=== PATIENT | female | born 1950 | race African-American/Black ===

== ENCOUNTER 2024-06-22 12:12 | Emergency (ER) | payer OTHER ==
--- OUTSIDE RECORDS SUMMARY | 2024-06-22 12:17 | XMS REPORT | Clinical Summary ---
Author Name Unknown Organization [facility] Address [address] [place] [address] Care Team Providers Care Tire Shop Mechanic Name Role Phone Christopher Hernandez MD Unavailable Unava ilable Aakash Ortega MD Unavailable Russ Joyner MD Unavailable [phone] Aakash Osborne MD Unavailable Allergies Active Allergy Reactions Criticality Noted Date Comments Tramadol Anaphylaxis,GI Intolerance,Itching,Naus ea And Vomiting,Other (See Comments) High 05/08/2008 Sick to her stomach;Dizziness "upset stomach" Other Reaction(s): REACTION: diarrhea, abdominal cramping, bloating; n/v upset stomach Outside Source Comment: n%2Fv upset stomach Medications * This document contains information received from the source organization and may not represent a complete record from that organization. apixaban (ELIQUIS) 5 mg tablet Take 1 tablet (5 mg) by mouth every 12 (twelve) hours. 01/19/20 23 Active hydroxyurea (HYDREA) 500 mg capsule Take 1 capsule (500 mg) by mouth daily. 11/29/19 21 Active multivitamin (THERAGRAN) tablet Take 1 tablet by mouth daily. Active lisinopril (PRINIVIL,ZESTR IL) 5 mg tablet TAKE ONE (1) TABLET(S) BY MOUTH ONCE A DAY. 04/15/19 24 Active HYDROcodone-divine taminophen (NORCO) 5 mg-325 mg per tablet TAKE ONE (1) TABLET(S) BY MOUTH TWICE A DAY FOR 15 DAYS. 05/03/19 24 Active nicotine (NICODERM CQ) 21 mg/24 hr transdermal patchIndication s:Tobacco dependence syndrome Apply 1 to 2 patches to skin and change patches daily as directed for tobacco cessation (alternate sites). 56 patch 5 9:26 AM CDT 06/01/19 25 Active atorvastatin (LIPITOR) 40 mg tablet Take 1 tablet (40 mg) by mouth at bedtime. 10/25/19 025 Discontinued cholecalciferol , vitamin D3, 25 mcg (1,000 unit) capsule Take 1 capsule (1,000 Units) by mouth daily. 09/12/19 025 Discontinued doxazosin (CARDURA) 4 mg tablet Take 1 tablet (4 mg) by mouth twice daily. 08/21/19 025 Discontinued furosemide (LASIX) 20 mg tablet Take 2 tablets (40 mg) by mouth as needed. 07/29/19 025 Discontinued nebivolol (BYSTOLIC) 5 MG tablet Take 1 tablet (5 mg) by mouth daily. 06/24/19 025 Discontinued omeprazole (PriLOSEC) 40 MG capsule Take 1 capsule (40 mg) by mouth every morning before breakfast. 02/22/20 025 Discontinued fluticasone-ume clidin-vilanter (Trelegy Ellipta) 200-62.5-25 mcg dsdvIndications :Shortness of breath Inhale 1 puff by mouth daily. 60 each 3 02/10/20 025 Discontinued docusate sodium 100 mg tablet 025 Discontinued potassium citrate (UROCIT-K) 15 mEq SR tablet 025 Discontinued pantoprazole (PROTONIX) 40 mg EC tablet 02/26/20 025 Discontinued potassium chloride (K-DUR,KLOR-CON M) 10 mEq tablet TAKE ONE (1) TABLET(S) BY MOUTH DAILY. 03/12/20 23 025 Discontinued spironolactone (ALDACTONE) 25 mg tablet TAKE ONE (1) TABLET(S) BY MOUTH ONCE A DAY. 03/12/20 23 025 Discontinued divalproex (DEPAKOTE) 500 mg 24 hr tablet 04/22/19 24 025 Discontinued nicotine (NICODERM CQ) 21 mg/24 hr transdermal patchIndication s:Tobacco dependence syndrome Apply 1 patch to skin and change patch daily as directed for tobacco cessation (alternate sites). 28 patch 4 10:40 AM NEEDLE LOOM OPERATOR 05/03/19 024 Discontinued(Re order) varenicline (Chantix) 1 mg tabletIndicatio ns:Tobacco dependence syndrome Take 1/2 tab qAM for 7 days then Increase to one day on day #8 28 tablet 05/10/19 24 025 Discontinued gabapentin (NEURONTIN) 300 mg capsule TAKE ONE (1) CAPSULE(S) BY MOUTH TWICE A DAY. 05/17/19 24 025 Discontinued sertraline (ZOLOFT) 100 mg tabletIndicatio ns:Anxiety, not otherwise specified Take one tab qAM 30 tablet 2 06/10/19 24 025 Discontinued nicotine (NICODERM CQ) 21 mg/24 hr transdermal patchIndication s:Tobacco dependence syndrome Apply 1 patch to skin and change patch daily as directed for tobacco cessation (alternate sites). 28 patch 06/23/19 24 024 Discontinued(Re order) nicotine (NICODERM CQ) 21 mg/24 hr transdermal patchIndication s:Tobacco dependence syndrome Apply 1 patch to skin and change patch daily as directed for tobacco cessation (alternate sites). 28 patch 06/24/19 24 024 Discontinued nicotine (NICODERM CQ) 21 mg/24 hr transdermal patchIndication s:Tobacco dependence syndrome Apply 1 patch to skin and change patch daily as directed for tobacco cessation (alternate sites). 28 patch 4 2:37 PM CDT 06/24/19 24 025 Discontinued nicotine (NICODERM CQ) 21 mg/24 hr transdermal patchIndication s:Tobacco dependence syndrome Apply 1 patch to skin and change patch daily as directed for tobacco cessation (alternate sites). 28 patch 5 9:49 AM NEEDLE LOOM OPERATOR 05/10/19 025 Discontinued(Re order) Active Problems Problem Noted Date Diagnosed Date Anxiety 02/26/2023 Tobacco dependence syndrome 02/10/2023 Chronic obstructive pulmonary disease 01/27/2023 Coronary arteriosclerosis 01/27/2023 Deep vein thrombosis of left lower extremity Chronic kidney disease, stage 2 (mild) 3 Other chronic pain 01/27/2023 Hyperlipidemia 01/27/2023 Congestive heart failure 01/27/2023 Squamous cell carcinoma, NOS of lower lobe, lung <Left> 01/27/2023 Assessment & Plan (01/29/2023 2:07 PM NEEDLE LOOM OPERATOR): Mrs. 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 The patient is not a surgical candidate due to significant comorbidities including CKD4, CHF, CAD, PAD, and recent DVT and PE. We explained she would have an elevated risk for complications if surgery were to be considered. She will be pending in our clinic and has a consult with [facility] next week to discuss SBRT. Pulmonary embolism 01/27/2023 Peripheral vascular disease 07/19/2019 Spinal stenosis of cervical region 05/04/2019 Hypertensive disorder 05/09/2008 Overview (03/24/2023): Replaced inactive or deprecated diagnosis from regulatory IMO import. Resolved Problems Problem Noted Date Diagnosed Date Resolved Date Metastatic malignant neoplasm to brain 09/14/2023 09/14/2023 Encounters * This document contains information received from the source organization and may not represent a complete record from that organization. Date Type Department Care Team Description 04/18/2024 1:29 PM NEEDLE LOOM OPERATOR - 04/18/2024 11:59 PM NEEDLE LOOM OPERATOR Hospital [facility] [address] [facility] Main Bldg, [address] [place] [address] Russ Joyner MD Squamous cell carcinoma, NOS of lower lobe, lung <Left> (Primary Dx) Discharge Disposition: Home 04/18/2024 8:00 AM NEEDLE LOOM OPERATOR Ancillary Procedure PET Imaging [address] [facility], 6th [place] [address] 04/18/2024 Travel 12/28/2023 9:45 AM CDT - 12/28/2023 11:59 PM CDT Hospital Encounter [facility] [address] [place] [address] Main Bldg, [address] [place] [address] Russ Joyner MD Squamous cell carcinoma, NOS of lower lobe, lung <Left> (Primary Dx); Non-small cell lung cancer <Unspecified side> Discharge Disposition: Home 12/28/2023 Travel 12/27/2023 2:40 PM CDT - 12/27/2023 11:59 PM CDT Hospital Encounter [facility] [address] [place] [address], 3rd [place] [address] Marjorie Lawson APRN Non-small cell lung cancer <Unspecified side> Discharge Disposition: Home 09/21/2023 2:45 PM CDT - 09/21/2023 11:59 PM CDT Hospital Encounter [facility] [address] [place] [address] Main dg, [address] [facility] [place] [address] Russ Joyner MD Squamous cell carcinoma, NOS of lower lobe, lung <Left> (Primary Dx); Malignant neoplasm of bronchus of lower lobe of left lung Discharge Disposition: Home 09/21/2023 Orders Only [facility] [address] [place] [address] Main Bldg, [address] [place] [address] Marjorie Lawson APRN Non-small cell lung cancer <Unspecified side> (Primary Dx) 09/14/2023 12:30 PM CDT Ancillary Procedure PET Imaging [address] [facility], 6th [place] [address] Marjorie Lawson APRN after 06/23/2023 Immunizations Name Administration Dates Next Due Pneumococcal Conjugate 13-Valent 04/22/2017 Surgical History Surgery Date Site/Laterality Comments HERNIA REPAIR BREAST LUMPECTOMY HYSTERECTOMY LIVER BIOPSY CHOLECYSTECTOMY [facility] EBUS GUIDED SAMPL 3/> NODE STATION/STRUX 02/11/2023 N/A Procedure: BRONCHOSCOPY WITH EBUS 3 OR MORE NODES; Surgeon: Aakash Osborne MD; Location: MAIN PULM PROC; Service: PULMONARY Medical History Medical History Date Comments Heart failure Hypertension Peripheral vascular disease Hyperlipidemia Thrombosis Unspecified lump in unspecified breast Lung nodule Chronic bronchitis Gastric reflux Anemia Arthritis Depressive disorder Anxiety Malignant tumor of lung Family History Medical History Relation Name Comments Lung cancer Paternal Aunt Multiple Myeloma Sister Relation Name Status Comments Paternal Aunt Sister Social History Tobacco Use Types Packs/Day Years Used Date Smoking Tobacco: Every Day Cigarettes 1 57.3 Started: 03/15/1967 Smokeless Tobacco: Never Tobacco Cessation:Ready to Q uit: Yes; Counseling Given: Yes Comments:Currently smoking 11-12 cpd Alcohol Use Standard Drinks/Week Comments Yes 0 (1 standard drink = 0.6 oz pur e alcohol) 1 glass of wine 4-5x per year Comments Unknown Sex and Gender Information Value Date Recorded Sex Assigned at Female 01/21/2023 10:48 AM NEEDLE LOOM OPERATOR Legal Sex Female 10:58 AM NEEDLE LOOM OPERATOR Gender Identity Female 01/21/2023 10:48 AM NEEDLE LOOM OPERATOR Sexual Orientation Straight 01/21/2023 10 :48 AM NEEDLE LOOM OPERATOR Obstetrics History Last Filed Vital Signs Vital Sign Reading Time Taken Comments Blood Pressure 150/72 04/18/2024 1:37 PM NEEDLE LOOM OPERATOR Pulse 68 04/18/2024 1:37 PM NEEDLE LOOM OPERATOR Temperature 36.9 °C (98.4 °F) 04/18/2024 1:37 PM CS T Respiratory Rate 20 04/18/2024 1:37 PM NEEDLE LOOM OPERATOR Oxygen Saturation 98% 04/18/2024 1:37 PM NEEDLE LOOM OPERATOR Inhaled Oxygen Concentration - - Weight 72 kg (158 lb 11.7 oz) 04/18/2024 1:37 PM NEEDLE LOOM OPERATOR Height 167 cm (5' 5.75") 04/18/2024 8:01 AM NEEDLE LOOM OPERATOR Body Mass Index 25.82 04/18/2024 8:01 AM NEEDLE LOOM OPERATOR Plan of Treatment Upcoming Encounters Date Type Department Care Team (Late st Contact Info) Description 10/23/2024 3:[address] [facility] [address] [facility] Main Bldg, 3rd [place] [address] Megan Liu, DRAFTER TOOL DESIGN [address] [place] [address] [email or web address] 10/24/2024 9:00 AM CDT Appointment [facility] [address] [facility], [address] [place] [address] Russ Joyner MD [address] [place] [address] [email or web address] Maintenance Due Date Last Done Comments COVID-19 Vaccine (#1) 11/29/1955 Pneumococcal Vaccine: 50+ Years (2 of 2 - PPSV23) 07/201704/22/2017 Influenza Vaccine (#1) 2023 Procedures Procedure Name Priority Date/Time Associated Diagnosis Comments PETCT F18 FDG (FLUORODEOXYGLUCOSE) WITHOUT CONTRAST Routine 04/18/2024 9:47 AM NEEDLE LOOM OPERATOR Squamous cell carcinoma, NOS of lower lobe, lung <Left> CT CHEST WO CONTRAST Routine 12/27/2023 4:18 PM CDT Non-small cell lung cancer <Unspecified side> POC CREATININE Routine 12/27/2023 3:25 PM CDT PETCT F18 FDG (FLUORODEOXYGLUCOSE) WITHOUT CONTRAST Routine 09/14/2023 3:08 PM CDT Malignant neoplasm of bronchus of lower lobe of left lung after 06/23/2023 Results * PETCT F18 FDG (Fluorodeoxyglucose) without contrast (04/18/2024 9:47 AM NEEDLE LOOM OPERATOR) Only the most recent of2 resultswithin the time period is included. Anatomical Region Laterality Modality Whole Body Positron Emissio n Tomography (PET) 04/18/2024 10:2 8 AM NEEDLE LOOM OPERATOR Impressions 04/18/2024 1:13 PM NEEDLE LOOM OPERATOR Residua of a treated primary malignancy in the left lower lobe is unchanged in size and continues to show complete metabolic response to therapy. An enlarged left infrahilar lymph node and a nonenlarged right paratracheal lymph nodes are unchanged in size and have low-grade FDG uptake that has not changed significantly in the interval and is most likely due to therapy-related inflammation. Small lung nodules of uncertain etiology are unchanged and most likely benign. There are no distant-extrathoracic systemic metastases. ACTIONABLE ITEMS/RECOMMENDATIONS*: None. *An Actionable Finding is a finding that may be unrelated to the original reason for imaging but potentially actionable, meaning further investigation may be necessary. The Actionable Findings Vigilance Unit (AFVU) assists medical providers with responding to additional radiologic findings that are unexpected and potentially actionable. Narrative 04/18/2024 1:13 PM NEEDLE LOOM OPERATOR FULL RESULT: Examination: 18F-FDG-PET/CT without contrast, 04/18/2024 9:47 AM Clinical History: Malignant neoplasm of bronchus of lower lobe of left lung [C34.32 (ICD-10-CM)]. Indication: To determine response to therapy and subsequent treatment strategy. Restaging. Comparison: Chest CT 12/27/2023. Technique: Following intravenous administration of 9.2 mCi F-18 fluorodeoxyglucose (FDG), a CT attenuation corrected PET scan was obtained from the vertex to the thighs. Findings: Chest: 1. Small focal irregular nodular opacity in left lower lobe (image 214, series 6) consistent with residua of a treated primary lung malignancy is unchanged in size and is not FDG avid. There is an adjacent atelectatic/consolidative opacity with low-grade FDG uptake consistent with sequelae of radiation therapy. 2. Small (less than 5 mm) scattered noncalcified nodules in both lungs are unchanged. There are no new lung nodules. There is a diffusely calcified benign right lung nodule. 3. There is a 1.2 cm left infrahilar lymph node (image 183) that is unchanged in size and has low-grade FDG uptake (SUV max 3.2, previously 3.4). There is low-grade FDG uptake within a nonenlarged right lower paratracheal lymph node (SUV max 2.9, previously 2.7). There are no enlarged or FDG avid extrathoracic lymph nodes. 4. There is coronary artery calcification consistent with sequelae of atherosclerosis. 5. There is linear increased FDG uptake within the esophagus extending from the thoracic inlet to the gastroesophageal junction consistent with esophagitis. Abdomen and Pelvis: 6. FDG uptake in the liver and spleen is physiologic. There is a 2.5 x 1.2 cm soft tissue nodule adjacent to the spleen that is not FDG avid, is unchanged since 04/21/2022 and is most consistent with a splenule. 7. The adrenals are normal. Musculoskeletal: 8. There are no FDG avid osseous metastases. Head and Neck: 9. There are no FDG avid brain metastases. However, PET/CT imaging is not the optimal imaging modality for the detection of small brain metastases. Procedure Note Marquise Trevino MD - 04/18/2024 FULL RESULT: Examination: 18F-FDG-PET/CT without contrast, 04/18/2024 9:47 AM Clinical History: Malignant neoplasm of bronchus of lower lobe of leftlung [C34.32 (ICD-10-CM)]. Indication: To determine response to therapy and subsequent treatmentstrategy. Restaging. Comparison: Chest CT 12/27/2023. Technique: Following intravenous administration of 9.2 mCi F- 18fluorodeoxyglucose (FDG), a CT attenuation corrected PET scan was obtainedfrom the vertex to the thighs. Findings: Chest: 1. Small focal irregular nodular opacity in left lower lobe (image 214,series 6) consistent with residua of a treated primary lung malignancy isunchanged in size and is not FDG avid. There is an adjacentatelectatic/consolidative opacity with low- grade FDG uptake consistentwith sequelae of radiation therapy. 2. Small (less than 5 mm) scattered noncalcified nodules in both lungs areunchanged. There are no new lung nodules. There is a diffusely calcifiedbenign right lung nodule. 3. There is a 1.2 cm left infrahilar lymph node (image 183) that isunchanged in size and has low-grade FDG uptake (SUV max 3.2, previously3.4). There is low-grade FDG uptake within a nonenlarged right lowerparatracheal lymph node (SUV max 2.9, previously 2.7). There are noenlarged or FDG avid extrathoracic lymph nodes. 4. There is coronary artery calcification consistent with sequelae ofatherosclerosis. 5. There is linear increased FDG uptake within the esophagus extendingfrom the thoracic inlet to the gastroesophageal junction consistent withesophagitis. Abdomen and Pelvis: 6. FDG uptake in the liver and spleen is physiologic. There is a 2.5 x 1.2cm soft tissue nodule adjacent to the spleen that is not FDG avid, isunchanged since 04/21/2022 and is most consistent with a splenule. 7. The adrenals are normal. Musculoskeletal: 8. There are no FDG avid osseous metastases. Head and Neck: 9. There are no FDG avid brain metastases. However, PET/CT imaging is notthe optimal imaging modality for the detection of small brainmetastases. IMPRESSION: Residua of a treated primary malignancy in the left lower lobe isunchanged in size and continues to show complete metabolic response totherapy. An enlarged left infrahilar lymph node and a nonenlarged rightparatracheal lymph nodes are unchanged in size and have low-grade FDGuptake that has not changed significantly in the interval and is mostlikely due to therapy-related inflammation. Small lung nodules ofuncertain etiology are unchanged and most likely benign. There are nodistant-extrathoracic systemic metastases. ACTIONABLE ITEMS/RECOMMENDATIONS*: None. *An Actionable Finding is a finding that may be unrelated to the originalreason for imaging but potentially actionable, meaning furtherinvestigation may be necessary. The Actionable Findings Vigilance Unit(AFVU) assists medical providers with responding to additional radiologicfindings that are unexpected and potentially actionable. Megan Liu APRN IMG PETCT ORDERABL ES Final Result * CT Chest without Contrast (12/27/2023 4:18 PM CDT) Anatomical Region Laterality Modality Chest Computed Tomogra phy 12/27/2023 4:50 PM CDT Impressions 12/28/2023 8:50 AM CDT 1. Further volume contraction in the left lower lobe radiation fibrosis. No specific evidence of recurrent or metastatic disease in the chest. 2. A 12 mm lymph node in the left inferior hilum is not significantly changed from 01/31/2023, and favored to be benign. 3. Scattered pulmonary nodules are stable from 01/31/2023, and are likely benign. ACTIONABLE ITEMS/RECOMMENDATIONS*: None. *An Actionable Finding is a finding that may be unrelated to the original reason for imaging but potentially actionable, meaning further investigation may be necessary. The Actionable Findings Vigilance Unit (AFVU) assists medical providers with responding to additional radiologic findings that are unexpected and potentially actionable. Narrative 12/28/2023 8:50 AM CDT FULL RESULT: Examination: CT CHEST WO CONTRAST on 12/27/2023 4:18 PM. Clinical History: Non-small cell lung cancer <Unspecified side>. Left lower lobe radiation therapy completed 03/04/2023 Indication: Cancer staging or restaging Comparison: PET/CT 09/14/2023 Technique: CT of the chest is performed without intravenous contrast. Findings: Lungs/Airways/Pleura: Bilateral bronchial wall thickening is present. The central airways are clear. There is progressive volume loss associated with the left lower lobe radiation fibrosis. The treated lesion within the radiation fibrosis is stable measuring approximately 14 x 7 mm (series 7, image 97). There is mild emphysema. Multiple calcified granulomas are present. Other, scattered 2-3 mm pulmonary nodules are stable from 01/31/2023. There are no new or enlarging pulmonary nodules. The pleural spaces are clear. Neck/Mediastinum/Nodes/Heart: A 12 mm lymph node in the left inferior hilum is stable. Other mediastinal lymph nodes measuring up to 7 mm are stable. There are calcified subcarinal and left hilar lymph nodes. The heart size is normal. There is no pericardial effusion. Calcific coronary atherosclerosis is present. The pulmonary artery is mildly dilated measuring 32 mm. Upper abdomen: There are bilateral renal calculi measuring up to 5 mm. There has been prior repair of the anterior abdominal wall. Bones/Soft Tissues: There is no suspicious osseous lesion. ACDF hardware is present. There is a stable compression deformity of the superior endplate of T4. Procedure Note Jamey Harrison MD - 12/28/2023 FULL RESULT: Examination: CT CHEST WO CONTRAST on 12/27/2023 4:18 PM. Clinical History: Non-small cell lung cancer <Unspecified side>. Leftlower lobe radiation therapy completed 03/04/2023 Indication: Cancer staging or restaging Comparison: PET/CT 09/14/2023 Technique: CT of the chest is performed without intravenous contrast. Findings: Lungs/Airways/Pleura: Bilateral bronchial wall thickening is present. Thecentral airways are clear. There is progressive volume loss associatedwith the left lower lobe radiation fibrosis. The treated lesion within theradiation fibrosis is stable measuring approximately 14 x 7 mm (series 7,image 97). There is mild emphysema. Multiple calcified granulomas arepresent. Other, scattered 2-3 mm pulmonary nodules are stable from01/31/2023. There are no new or enlarging pulmonary nodules. The pleuralspaces are clear. Neck/Mediastinum/Nodes/Heart: A 12 mm lymph node in the left inferiorhilum is stable. Other mediastinal lymph nodes measuring up to 7 mm arestable. There are calcified subcarinal and left hilar lymph nodes. Theheart size is normal. There is no pericardial effusion. Calcific coronaryatherosclerosis is present. The pulmonary artery is mildly dilatedmeasuring 32 mm. Upper abdomen: There are bilateral renal calculi measuring up to 5 mm.There has been prior repair of the anterior abdominal wall. Bones/Soft Tissues: There is no suspicious osseous lesion. ACDF hardwareis present. There is a stable compression deformity of the superiorendplate of T4. IMPRESSION: 1. Further volume contraction in the left lower lobe radiation fibrosis.No specific evidence of recurrent or metastatic disease in the chest. 2. A 12 mm lymph node in the left inferior hilum is not significantlychanged from 01/31/2023, and favored to be benign. 3. Scattered pulmonary nodules are stable from 01/31/2023, and are likelybenign. ACTIONABLE ITEMS/RECOMMENDATIONS*: None. *An Actionable Finding is a finding that may be unrelated to the originalreason for imaging but potentially actionable, meaning furtherinvestigation may be necessary. The Actionable Findings Vigilance Unit(AFVU) assists medical providers with responding to additional radiologicfindings that are unexpected and potentially actionable. Marjorie Lawson DRAFTER TOOL DESIGN IMG CT ORDERABLES Final Result * (ABNORMAL) POC Creatinine (12/27/2023 3:25 PM CDT) POC Creatinine 2.3(H) 0.6 - 1.3 mg/dL 12/27/2023 3:27 PM CDT [facility] Comment:Medications, especia lly hydroxyurea or supplements, such as ascorbate, can interfere with test results causing a falsely and significantly higher result than expected. If a problem is suspected with a patient's result, a sample should be sent to the laboratory for confirmatory testing. POC eGFR 22(L) >=60 mL/min/1.7 3 sq. m 12/27/2023 3:27 PM CDT [facility] Comment: The eGFRcr is calculated with the 2020 CKD-EPI creatinine equation using creatinine, patient's age, and sex for adults 18 years of age and older. Other factors, especially muscle mass, may affect accuracy and need to be considered. According to the Kidney Disease: Improving Global Outcomes (KDIGO) CKD Work Group 2012 Clinical Practice Guideline, chronic kidney disease (CKD) is defined as the abnormalities of kidney structure or function, present for more than 3 months, with implications for health. CKD should be classified by cause, GFR category, and albuminuria category. KDIGO guidelines provide the following GFR categories. Stage / Description / GFR mL/min/1.73 m2: G1* / Normal or high / >= 90 G2* / Mildly decreased / 60-89 G3a / Mildly to moderately decreased / 45-59 G3b / Moderately to severely decreased / 30-44 G4 / Severely decreased / 15-29 G5 / Kidney failure / <15 *In the absence of evidence of kidney damage, neither G1 nor G2 fulfill criteria for CKD. Blood 12/27/2023 3:25 PM CDT 12/27/2023 3:27 PM CDT Narrative [facility] - 12/27/2023 3:27 PM CDT Method description: The i-STAT is an analyzer used for in vitro quantification of various analytes in whole blood. The device uses a single disposable cartridge which contains microfabricated sensors, a calibration solution, fluidics system, and a waste chamber. Each test cartridge contains chemically sensitive biosensors on a silicon chip that are configured to perform specific tests. The microfabricated sensors measure analyte concentration by an electrochemical assay. Marjorie Lawson DRAFTER TOOL DESIGN POCT ORDERABLES - DEVICE Final Result [facility] Unless otherwise noted, all lab tests performed by: Division of Pathology and Laboratory Medicine [facility] [place] [address] after 06/23/[address] [place] [address] [employer] [place] [address] [employer] PPO Care Teams [employer] Mechanic Relationship Specialty Start Date End Date Christopher Hernandez MD [address] [place] [id number] PCP - External Referring Pulmonary Medicine 01/20/23 Aakash Ortega MD [address] [place] [id number] [email or web address] Physician Cardiothoracic Surgery 01/29/23 Russ Joyner MD [facility] [place], [place] [id number] [email or web address] Consulting Physician Radiation Oncology 02/01/23 Aakash Osborne MD [address] [place] [address] [id number] [email or web address] Consulting Physician Pulmonary Medicine 02/09/23
--- NOTE | 2024-06-22 14:42 | RAD REPORT ---
EXAMINATION: ONE VIEW CHEST XR CLINICAL INDICATION: Female, 73 years old.,CHEST PAIN TECHNIQUE: Frontal chest projection is submitted. Examination is limited by patient positioning and t echnique. COMPARISON: 04/24/2024 FINDINGS: The lungs are well inflated and clear. No pneumothorax or sizable effusion. The heart is normal in s ize. Mediastinal contours are unremarkable. IMPRESSION: No acute intrathoracic abnormalities.
--- NOTE | 2024-06-22 15:04 | RAD REPORT ---
EXAM: CT Head Brain Wo Cont HISTORY: HEADACHE COMPARISON: None available TECHNIQUE: Multiple contiguous axial images were obtained for a CT of the brain without contrast. Sag ittal and coronal reformats were performed. One or more of the following dose reduction techniques were used: Automated exposure control, adjus tment of the mA and kV according to patient size, and iterative reconstruction. Unless otherwise specified, incidental findings do not require dedicated imaging follow-up. FINDINGS: No evidence of hydrocephalus, intracranial hemorrhage, or extra-axial fluid collection. Mild brain atrophy with mild periventricular and deep white matter chronic microvascular ischemic ch anges present. The calvarium is intact. The visualized paranasal sinuses and mastoid air cells are essentially clear . IMPRESSION: No evidence of acute intracranial abnormality.
[2024-06-22 15:48] LABS: Absolute Basophils 0.1 K/uL (0-0.5); Absolute Eosinophils 0.1 K/uL (0-0.5); Absolute Lymphocytes (CBC) 2.1 K/uL (0.7-4.9); Absolute Monocytes 0.3 K/uL (0.1-1.3); Absolute Neutrophil 4.1 K/uL (1.8-8.0); Basophils % 1.1 % (0-1.3); Eosinophils % 1.4 % (0-4.4); Hematocrit 33.6 % (36.0-45.0); Hemoglobin 11.7 g/dL (12.0-15.0); Lymphocytes % 31.6 % (15.3-44.8); MCH 37.6 pg (27.0-35.0); MCHC 34.8 g/dL (32.0-36.0); MCV 108.1 fL (80-100); MPV 9.1 fL (7.6-11.3); Monocytes % 4.5 % (3.3-12.3); Neutrophils % 61.4 % (41.7-73.7); Platelets 355 thou/uL (152-406); RBC Red Blood Cell Count 3.11 M/uL (3.86-4.86); Red Cell Distribution Width 13.3 % (12.1-15.2)
[2024-06-22 16:02] LABS: Anion Gap 9.3 mEq/L (5.0-15.0); Magnesium 2.2 mg/dL (1.6-2.4); Potassium 4.3 mEq/L (3.5-5.1); Troponin High Sensitivity 15.9 pg/mL (<58.9)
[2024-06-22] MEDS ORDERED: KETOROLAC 30 MG/ML INJ ONE (16:03)
[2024-06-22] MEDS ORDERED: DIPHENHYDRAMINE 50 MG/ML VIAL ONE (16:28)
[2024-06-22] MEDS ORDERED: NA CHLORIDE 0.9% 250 ML ONE (16:28)
[2024-06-22] MEDS ORDERED: METOCLOPRAMIDE 10 MG/2mL INJ ONE (16:28)
--- NOTE | 2024-06-22 16:39 | ER ---
Nurse's Notes [facility] Name: Meg Gonzalez Age: 73 yrs Sex: Female : 1950 Arrival Date: 06/22/2024 Time: 12:12 Bed 15 Private MD: Diagnosis: Essential (primary) hypertension;Headache;Anemia, unspecified;Shortness of breath Presentation: 06/22 13:09 Chief complaint: Patient states: her BP was running high and she is having squeezing iw chest pains, took 40 mg of her lisinopril this morning. Coronavirus screen: At this time, the client does not indicate any symptoms associated with coronavirus-19. Ebola Screen: No symptoms or risks identified at this time. Initial Sepsis Screen: Does the patient meet any 2 criteria? No. Patient's initial sepsis screen is negative. Does the patient have a suspected source of infection? No. Patient's initial sepsis screen is negative. Risk Assessment: Do you want to hurt yourself or someone else? Patient reports no desire to harm self or others. 13:09 Method Of Arrival: Wheelchair iw 13:09 Acuity: GASPER 3 iw 13:09 Onset of symptoms was June 21, 2024. iw Historical: - Allergies: 13:10 Ultram; iw - Home Meds: 13:10 Eliquis 5 mg oral tablet 2 times per day [Active]; iw - PMHx: 13:10 HIGH PLATELETS; Hypertensive disorder; Lung Cancer; iw - Infectious Disease History:: Denies. - Social history:: Smoking status: Patient reports the use of cigarette tobacco products, smokes one-half pack cigarettes per day. Screenin:52 [facility] ED Fall Risk Assessment (Adult) History of falling in the last 3 months, db including since admission No falls in past 3 months (0 pts) Confusion or Disorientation No (0 pts) Intoxicated or Sedated No (0 pts) Impaired Gait No (0 pts) Mobility Assist Device Used No (0 pt) Altered Elimination No (0 pt) Score/Fall Risk Level 0 - 2 = Low Risk Oriented to surroundings, Maintained a safe environment. Abuse screen: Denies threats or abuse. Denies injuries from another. Nutritional screening: No deficits noted. Tuberculosis screening: No symptoms or risk factors identified. Assessment: 13:45 Reassessment: No changes from previously documented assessment. Patient and/or family ll1 updated on plan of care and expected duration. Pain level reassessed. 15:22 Reassessment: Patient appears in no apparent distress at this time. Patient and/or db family updated on plan of care and expected duration. Pain level reassessed. Patient is alert, oriented x 3, equal unlabored respirations, skin warm/dry/pink. General: Appears in no apparent distress. comfortable. 16:09 Reassessment: PATIENT REFUSED TORADOL. STATES HAS STAGE 3 KIDNEY DISEASE. db 17:29 Reassessment: Patient appears in no apparent distress at this time. Patient and/or db family updated on plan of care and expected duration. Pain level reassessed. Patient is alert, oriented x 3, equal unlabored respirations, skin warm/dry/pink. Reassessment: Patient denies pain at this time. Patient states feeling better. Patient states symptoms have improved. General: Appears in no apparent distress. comfortable, Behavior is calm, cooperative. Pain: Denies pain. Pain: Complains of pain in head. Neuro: Level of Consciousness is awake, alert, obeys commands, Oriented to person, place, time, situation. Vital Signs: 13:09 BP 179 / 101; Pulse 62; Resp 18; Temp 97.8; Pulse Ox 100% on R/A; Weight 73.03 kg; iw Height 5 ft. 8 in. ; Pain 8/10; 14:18 BP 154 / 76; Pulse 65; Resp 16; Pulse Ox 100% ; db 15:05 BP 166 / 80; Pulse 64; Resp 16; Pulse Ox 100% ; db 16:00 BP 161 / 77; Pulse 65; Resp 16; Pulse Ox 100% ; db 17:00 BP 137 / 67; Pulse 64; Resp 16; Pulse Ox 100% ; db 13:09 Body Mass Index 24.48 (73.03 kg, 172.72 cm) iw 13:09 Pain Scale: Adult iw ED Course: 12:15 Patient arrived in ED. al6 12:15 Gorge Dimas DO is Attending Physician. ms3 12:57 CT Head Brain wo Cont In Process Unspecified. EDMS 13:00 XRAY Chest (1 view) In Process Unspecified. EDMS 13:09 Triage completed. iw 13:10 Arm band placed on. iw 13:45 Patient placed in an exam room, on a stretcher. ll1 14:18 Loulou Dickens, RN is Primary Nurse. db 14:48 Initial lab(s) drawn, by me, sent to lab. Missed attempt(s): 22 gauge in left wrist. db Bleeding controlled, band aid applied, catheter tip intact. 15:03 Missed attempt(s): 24 gauge in right upper arm. Bleeding controlled, band aid applied, ll1 catheter tip intact. 15:06 Lab(s) recollected, by me, held in ED. Inserted saline lock: 24 gauge in right hand, ll1 using aseptic technique. Blood collected. Flushed with 10 mL NS. 16:38 Reuben Toure MD is Referral Physician. ms3 17:30 Patient has correct armband on for positive identification. Bed in low position. Call db light in reach. Side rails up X 1. Provided Education on: DISCHARGE AND FOLLOWUP. Pulse ox on. NIBP on. Warm blanket given. Pillow given. 17:30 No provider procedures requiring assistance completed. IV discontinued, intact, db bleeding controlled, No redness/swelling at site. Administered Medications: 16:09 Not Given (Patient Refused): [id number] mg 10 mg IVP once db 16:25 Drug: NS 0.9% IV 250 ml IV at 250 ml once; to be given as a bolus over 60 minutes db Route: IV; Rate: 250 ml; Site: right hand; 17:33 Follow up: Response: No adverse reaction; IV Status: Completed infusion; IV Intake: db 250ml 16:30 Drug: metoCLOPramide IVP 10 mg IVP once; over 1 to 2 minutes Route: IVP; Site: right db wrist; 17:33 Follow up: Response: No adverse reaction db 16:30 Drug: diphenhydrAMINE IVP 12.5 mg IVP once Route: IVP; Site: right antecubital; db 17:33 Follow up: Response: No adverse reaction db Medication: 15:22 VIS not applicable for this client. db Intake: 17:33 IV: 250ml; Total: 250ml. db Outcome: 16:39 Discharge ordered by . ms3 17:30 Discharged to home via wheelchair, with family, db 17:30 Condition: stable 17:30 Discharge instructions given to patient, Instructed on discharge instructions, follow up and referral plans. 17:33 Patient left the ED. db Signatures: Dispatcher [employer] EDMayda Stewart RN RN iw Elizabeth Herrera RN RN ll1 Gorge Dimas, DO ms3 Loulou Dickens RN RN db Delia Sousa6 Corrections: (The following items were deleted from the chart) 13:10 13:09 BP 179 / 101; Pulse 62bpm; Resp 18bpm; Pulse Ox 100% RA; Temp 97.8F; Pain 8, iw Adult; iw 17:30 15:22 Reassessment: Patient appears in no apparent distress at this time. Patient db and/or family updated on plan of care and expected duration. Pain level reassessed. Patient is alert, oriented x 3, equal unlabored respirations, skin warm/dry/pink. db
--- NOTE | 2024-06-22 16:39 | EDPHYS ---
Physician Documentation [facility] Name: Meg Gonzalez Age: 73 yrs Sex: Female : 1950 Arrival Date: 06/22/2024 Time: 12:12 Bed 15 Private MD: ED Physician Gorge Dimas HPI: 06/22 12:42 This 73 yrs old Black Female presents to ER via Unassigned with complaints of High ms3 Blood Pressure. 12:42 73-year-old female with past medical history of hypertension, congestive heart failure ms3 presents to the emergency department for elevated blood pressure x 2 days. Patient states today her blood pressure was 217/103. Patient states she is experiencing headache, chest pain, fatigue. Patient states her discomfort is an 8/10. She denies any alleviating or inciting factors. Historical: - Allergies: 13:10 Ultram; iw - Home Meds: 13:10 Eliquis 5 mg oral tablet 2 times per day [Active]; iw - PMHx: 13:10 HIGH PLATELETS; Hypertensive disorder; Lung Cancer; iw - Infectious Disease History:: Denies. - Social history:: Smoking status: Patient reports the use of cigarette tobacco products, smokes one-half pack cigarettes per day. ROS: 12:42 Constitutional: Negative for fever, and chills. Respiratory: Negative for shortness of ms3 breath, cough, wheezing, and pleuritic chest pain, Abdomen/GI: Negative for abdominal pain, nausea, vomiting, diarrhea, and constipation, 12:42 MS/Extremity: Negative for injury and deformity, Skin: Negative for injury, rash, and discoloration, 12:42 Cardiovascular: Positive for chest pain, Exam: 12:42 Constitutional: This is a well developed, well nourished patient who is awake, alert, ms3 and in no acute distress. Cardiovascular: Regular rate and rhythm with a normal S1 and S2. No gallops, murmurs, or rubs. Normal PMI, no JVD. No pulse deficits. Respiratory: Lungs have equal breath sounds bilaterally, clear to auscultation and percussion. No rales, rhonchi or wheezes noted. No increased work of breathing, no retractions or nasal flaring. Abdomen/GI: Soft, non-tender, with normal bowel sounds. No distension or tympany. No guarding or rebound. No evidence of tenderness throughout. Skin: Warm, dry with normal turgor. Normal color with no rashes, no lesions, and no evidence of cellulitis. MS/ Extremity: Pulses equal, no cyanosis. Neurovascular intact. Full, normal range of motion. Neuro: Awake and alert, GCS 15, oriented to person, place, time, and situation. Cranial nerves II-XII grossly intact. Motor strength 5/5 in all extremities. Sensory grossly intact. Cerebellar exam normal. Normal gait. Psych: Awake, alert, with orientation to person, place and time. Behavior, mood, and affect are within normal limits. 21:47 ECG was reviewed by the Attending Physician. ms3 Vital Signs: 13:09 BP 179 / 101; Pulse 62; Resp 18; Temp 97.8; Pulse Ox 100% on R/A; Weight 73.03 kg; iw Height 5 ft. 8 in. ; Pain 8/10; 14:18 BP 154 / 76; Pulse 65; Resp 16; Pulse Ox 100% ; db 15:05 BP 166 / 80; Pulse 64; Resp 16; Pulse Ox 100% ; db 16:00 BP 161 / 77; Pulse 65; Resp 16; Pulse Ox 100% ; db 17:00 BP 137 / 67; Pulse 64; Resp 16; Pulse Ox 100% ; db 13:09 Body Mass Index 24.48 (73.03 kg, 172.72 cm) iw 13:09 Pain Scale: Adult iw MDM: 12:42 Differential diagnosis: hypertensive crisis, Malignant HTN, intracerebral hemorrhage. ms3 12:49 Medical Screening Exam initiated ms3 21:47 Data reviewed: vital signs, nurses notes, lab test result(s), EKG, radiologic studies, ms3 and as a result, I will discharge patient. I considered the following discharge prescriptions or medication management in the emergency department Medications were administered in the Emergency Department. See MAR. Independent interpretation of the following test(s) in the Emergency Department EKG: See my EKG interpretation above. Counseling: I had a detailed discussion with the patient and/or guardian regarding the historical points, exam findings, and any diagnostic results supporting the discharge/admit diagnosis, lab results, radiology results, the need for outpatient follow up, to return to the emergency department if symptoms worsen or persist or if there are any questions or concerns that arise at home. Special discussion: I discussed with the patient/guardian in detail that at this point there is no indication for admission to the hospital. It is understood, however, that if the symptoms persist or worsen the patient needs to return immediately for re-evaluation. ED course: Discussed labs, EKG, CT head, chest x-ray with patient. Patient to follow-up with primary care physician in 2 to 3 days. Patient understands agrees with plan. All questions were answered. Return precautions discussed include worsening symptoms, or any other concerns. 06/22 12:42 Order name: Basic Metabolic Panel; Complete Time: 16:13 ms3 06/22 12:42 Order name: CBC with Diff ms3 06/22 12:42 Order name: Magnesium; Complete Time: 16:13 ms3 06/22 12:42 Order name: Troponin HS; Complete Time: 16:13 ms3 06/22 12:42 Order name: XRAY Chest (1 view); Complete Time: 15:29 ms3 06/22 12:42 Order name: CT Head Brain wo Cont; Complete Time: 15:29 ms3 06/22 12:42 Order name: Cardiac monitoring; Complete Time: 15:22 ms3 06/22 12:42 Order name: EKG - Nurse/Tech; Complete Time: 14:51 ms3 06/22 12:42 Order name: IV Saline Lock; Complete Time: 14:51 ms3 06/22 12:42 Order name: Labs collected and sent; Complete Time: 14:51 ms3 06/22 12:42 Order name: O2 Per Protocol; Complete Time: 14:51 ms3 06/22 12:42 Order name: O2 Sat Monitoring; Complete Time: 14:51 ms3 06/22 15:07 Order name: Labs - recollect needed: green and purple; Complete Time: 15:22 bc6 EC:47 Rate is 62 beats/min. Rhythm is regular. QRS Rom[place] is Normal. QRS interval is normal. ms3 Clinical impression: NSR w/ Non-specific ST/T Changes. Interpreted by me. Reviewed by me. Administered Medications: 16:09 Not Given (Patient Refused): [id number] mg 10 mg IVP once db 16:25 Drug: NS 0.9% IV 250 ml IV at 250 ml once; to be given as a bolus over 60 minutes db Route: IV; Rate: 250 ml; Site: right hand; 17:33 Follow up: Response: No adverse reaction; IV Status: Completed infusion; IV Intake: db 250ml 16:30 Drug: metoCLOPramide IVP 10 mg IVP once; over 1 to 2 minutes Route: IVP; Site: right db wrist; 17:33 Follow up: Response: No adverse reaction db 16:30 Drug: diphenhydrAMINE IVP 12.5 mg IVP once Route: IVP; Site: right antecubital; db 17:33 Follow up: Response: No adverse reaction db Disposition Summary: 06/22/24 16:39 Discharge Ordered Notes: Location: Home ms3 Condition: Stable ms3 Diagnosis - Essential (primary) hypertension ms3 - Headache ms3 - Anemia, unspecified ms3 - Shortness of breath ms3 Followup: ms3 - With: Reuben Toure MD - When: 2 - 3 days - Reason: Recheck today's complaints Discharge Instructions: - Discharge Summary Sheet ms3 - Anemia ms3 - General Headache Without Cause ms3 - Hypertension, Adult ms3 - Shortness of Breath, Adult ms3 - DASH Eating Plan ms3 Forms: - Medication Reconciliation Form ms3 - Antibiotic Education ms3 - Prescription Opioid Use ms3 - Patient Portal Instructions ms3 - Leadership Thank You Letter ms3 Signatures: Dispatcher [employer] EDMayda Stewart, RN GREGOR iw Gorge Dimas DO DO ms3 Loulou Dickens RN RN db Zakia Duarte bc6 Corrections: (The following items were deleted from the chart) 12:43 12:43 BASIC METABOLIC PANEL+C.LAB.BRZ ordered. EDMS EDMS 12:43 12:43 CBC+H.LAB.BRZ ordered. EDMS EDMS 12:43 12:43 MAGNESIUM+C.LAB.BRZ ordered. EDMS EDMS 12:43 12:43 Troponin High Sensitivity+C.LAB.BRZ ordered. EDMS EDMS 12:43 12:43 Chest Single View+RAD.RAD.BRZ ordered. EDMS EDMS 12:43 12:43 Head Brain Wo Cont+CT.RAD.BRZ ordered. EDMS EDMS
[2024-06-22 17:33] LABS: Anisocytosis 1+; Blood Morphology Comment NOTED (NOT SEEN); Platelet Estimate ADEQ; Poikilocytosis 1+; White Blood Cell Scan OK (OK)
[2024-06-22 17:53] VITALS: TEMP 97.8; O2SAT 100
[2024-06-22 18:12] VITALS: BP 137/67
--- NOTE | 2024-06-23 14:17 | EKG ---
Test Date: 2024-06-22 Test Time: 13:15:54 Mail Rider: COLTON MEASUREMENT RESULTS: Intervals: Rate: 62 ME: 144 QRSD: 88 QT: 414 QTc: 420 [place]: P: -25 ME: 144 QRS: 64 T: -33 INTERPRETIVE STATEMENTS: Normal sinus rhythm T wave abnormality, consider inferior ischemia Abnormal ECG Compared to ECG 03/07/2023 16:10:44 Sinus arrhythmia no longer present T-wave abnormality still present Possible ischemia still present Electronically Signed On 06-23-24 14:13:31 CDT by [place]
== END 2024-06-22 17:33 | disposition home or self-care (01) ==
LOC: ER 12:12
DX: I10 Essential (primary) hypertension (principal); D64.9 Anemia, unspecified; R51.9 Headache, unspecified; R06.02 Shortness of breath; F17.210 Nicotine dependence, cigarettes, uncomplicated; Z79.01 Long term (current) use of anticoagulants; Z85.118 Personal history of other malignant neoplasm of bronchus and lung
CPT/HCPCS: 93005; 85025; 80048; 36415; 83735; 84484; 70450; 71045; 99284; J2765; J1200; J7050

== ENCOUNTER 2024-10-26 18:33 | Emergency (ER) | payer OTHER ==
--- OUTSIDE RECORDS SUMMARY | 2024-10-26 18:37 | XMS REPORT | Clinical Summary ---
Author Name Unknown Organization [facility] Address [address] [place] [address] Care Team Providers Care Development Associate Name Role Phone Christopher Hernandez MD Unavailable Unava ilable Aakash Ortega MD Unavailable Russ Joyner MD Unavailable [phone] Aakash Osborne MD Unavailable Allergies Active Allergy [...] 5 9:26 AM CDT 06/01/19 25 Active cloNIDine HCl (CATAPRES) 0.1 mg tablet Take 1 tablet (0.1 mg) by mouth. Active atorvastatin (LIPITOR) 40 mg tablet Take [...] by mouth daily. 60 each 3 02/10/20 23 025 Discontinued docusate sodium 100 mg tablet 025 Discontinued potassium citrate (UROCIT-K) 15 mEq SR tablet 025 Discontinued pantoprazole (PROTONIX) 40 mg EC tablet 02/26/20 23 025 Discontinued potassium chloride (K-DUR,KLOR-CON M) 10 mEq tablet TAKE ONE (1) TABLET(S) BY MOUTH DAILY. 03/12/20 025 Discontinued spironolactone (ALDACTONE) 25 mg tablet TAKE ONE (1) TABLET(S) BY MOUTH ONCE A DAY. 03/12/20 025 Discontinued divalproex (DEPAKOTE) 500 mg 24 hr tablet 04/22/19 24 025 Discontinued varenicline (Chantix) 1 mg tabletIndicatio ns:Tobacco dependence syndrome Take 1/2 tab qAM for 7 days then Increase to one day on day #8 28 tablet 05/10/19 025 Discontinued gabapentin (NEURONTIN) 300 mg capsule [...] (alternate sites). 28 patch 5 9:49 AM LOCAL SUPERINTENDENT 05/10/19 25 025 Discontinued(Re order) Active Problems Problem Noted [...] 01/27/2023 Assessment & Plan (01/29/2023 2:07 PM LOCAL SUPERINTENDENT): Mrs. Gonzalez is a 72 year-old female [...] or deprecated diagnosis from regulatory IMO import. Encounters * This document contains information received from the source organization and may not represent a complete record from that organization. Date Type Department Care Team Description 10/24/2024 2:32 PM CDT Hospital Encounter Radiation Treatment Center [facility] Main Bldg, [address]st [place] [address] Russ Joyner MD Squamous cell carcinoma, NOS of lower lobe, lung <Left> (Primary Dx) 10/24/2024 Travel 10/23/2024 8:35 AM CDT Ancillary Procedure Radiology Outpatient Center [address] [place] [address] Marjorie Lawson APRN Non-small cell lung cancer <Unspecified side> 10/17/2024 Orders Only Radiation Treatment Center [address] [place] [address] Main Bldg, [address] [place] [address] Marjorie Lawson APRN Non-small cell lung cancer <Unspecified side> (Primary Dx) 04/18/2024 1:29 PM LOCAL SUPERINTENDENT - 04/18/2024 11:59 PM LOCAL SUPERINTENDENT Hospital Encounter [facility] [address] [place] [address] Main Bldg, [address] [place] [address] Russ Joyner MD Squamous cell carcinoma, NOS of lower lobe, lung <Left> (Primary Dx) Discharge Disposition: Home 04/18/2024 8:00 AM LOCAL SUPERINTENDENT Ancillary Procedure PET Imaging [address] [facility], 6th [place] [address] 04/18/2024 Travel 12/28/2023 9:45 AM CDT - 12/28/2023 11:59 PM CDT Hospital Encounter Radiation Treatment Center [address] [facility] Main dg, [address] [place] [address] Russ Joyner MD Squamous cell carcinoma, NOS of lower lobe, lung <Left> (Primary Dx); Non-small cell lung cancer <Unspecified side> Discharge Disposition: Home 12/28/2023 Travel 12/27/2023 2:40 PM CDT - 12/27/2023 11:59 PM CDT Hospital Encounter [facility] [address] [facility], 3rd [place] [address] Marjorie Lawson, [employer] MACHINE OPERATOR Non-small cell lung cancer <Unspecified side> Discharge Disposition: Home after 10/27/2023 Immunizations Immunization Administration Dates Next Due Pneumococcal Conjugate 13-Valent 04/22/2017 Surgical History Surgery Date Site/Laterality Comments HERNIA REPAIR BREAST LUMPECTOMY HYSTERECTOMY LIVER BIOPSY CHOLECYSTECTOMY [place] [facility] EBUS GUIDED SAMPL 3/> NODE STATION/STRUX 02/11/2023 N/A Procedure: BRONCHOSCOPY WITH EBUS 3 OR MORE NODES; Surgeon: Aakash Osborne MD; Location: MAIN PUL PROC; Service: PULMONARY Medical History Medical History [...] Date Smoking Tobacco: Every Day Cigarettes 1 57.6 Started: 03/15/1967 Smokeless Tobacco: Never Tobacco Cessation:Ready to Q uit: Yes; Counseling Given: Yes Alcohol Use Standard Drinks/Week Comments Yes 0 (1 standard drink = 0.6 oz pur e alcohol) 1 glass of wine 4-5x per year Comments Unknown Sex and Gender Information Value Date Recorded Sex Assigned at Female 01/21/2023 10:48 AM LOCAL SUPERINTENDENT Legal Sex Female 10:58 AM LOCAL SUPERINTENDENT Gender Identity Female 01/21/2023 10:48 AM LOCAL SUPERINTENDENT Sexual Orientation Straight 01/21/2023 10 :48 AM LOCAL SUPERINTENDENT Obstetrics History Last Filed Vital Signs Vital Sign Reading Time Taken Comments Blood Pressure 123/77 10/24/2024 2:39 PM CDT Pulse 55 10/24/2024 2:39 PM CDT Temperature 36.9 °C (98.4 °F) 04/18/2024 1:37 PM CS T Respiratory Rate 18 10/24/2024 2:39 PM CDT Oxygen Saturation 98% 10/24/2024 2:39 PM CDT Inhaled Oxygen Concentration - - Weight 76.2 kg (167 lb 15.9 oz) 10/24/2024 2:39 PM CDT Height 167 cm (5' 5.75") 04/18/2024 8:01 AM LOCAL SUPERINTENDENT Body Mass Index 27.32 04/18/2024 8:01 AM LOCAL SUPERINTENDENT Plan of Treatment Health Maintenance Due Date Last Done Comments COVID-19 Vaccine (#1) 11/29/1955 Pneumococcal Vaccine: 50+ Ye ars (2 of 2 - PPSV23, PCV20, or PCV21) 06/17/2017 04/22/2017 Influenza Vaccine (#1) 2024 Procedures Procedure Name Priority Date/Time Associated Diagnosis Comments CT CHEST WO CONTRAST Routine 10/23/2024 9:40 AM CDT Non-small cell lung cancer <Unspecified side> PETCT F18 FDG (FLUORODEOXYGLUCOSE) WITHOUT CONTRAST Routine 04/18/2024 9:47 AM LOCAL SUPERINTENDENT Squamous cell carcinoma, NOS of lower lobe, lung <Left> CT CHEST WO CONTRAST Routine 12/27/2023 4:18 PM CDT Non-small cell lung cancer <Unspecified side> POC CREATININE Routine 12/27/2023 3:25 PM CDT after 10/27/2023 Results * CT Chest without Contrast (10/23/2024 9:40 AM CDT) Only the most recent of2 resultswithin the time period is included. 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 No recurrent or metastatic disease. * Nonspecific left infrahilar lymph node is stable and likely benign. ACTIONABLE ITEMS/RECOMMENDATIONS*: None. *An Actionable Finding is a finding that may be unrelated to the original reason for imaging but potentially actionable, meaning further investigation may be necessary. The Actionable Findings Vigilance Unit (AFVU) assists medical providers with responding to additional radiologic findings that are unexpected and potentially actionable. Narrative 10/24/2024 2:25 PM CDT FULL RESULT: Examination: CT CHEST WO CONTRAST on 10/23/2024 9:40 AM. Clinical History: Non-small cell lung cancer <Unspecified side> Indication: follow up Comparison: PET/CT 04/28/2024. CT 12/27/2023. Technique: CT of the chest is performed without intravenous contrast. Findings: Lungs/Airways/Pleura: The lungs are emphysematous. Stable sequelae of radiation therapy in the left lower lobe without evidence of local neoplasm recurrence. Small nonspecific lung nodules are stable and consistent with benign etiology. No new suspicious lung nodules. The central airways are patent. No pleural effusion. Neck/Mediastinum/Nodes/Heart: Stable left infrahilar lymph node measuring 1.1 cm, image 57 of series 2. Subcentimeter mediastinal lymph nodes are stable. No new lymphadenopathy. Heart size is stable. No pericardial effusion. Mild coronary artery calcifications. Stable dilated main pulmonary trunk measuring 3.2 cm. Upper abdomen: Bilateral nonobstructive renal calculi. Adrenals are unremarkable. Bones/Soft Tissues: No suspicious skeletal lesions. Stable compression deformity of T4 vertebral superior endplate. Partially imaged cervical spinal fusion hardware. Stable small calcification in the right breast. Procedure Note Edmund Joy MD - 10/24/2024 FULL RESULT: Examination: CT CHEST WO CONTRAST on 10/23/2024 9:40 AM. Clinical History: Non-small cell lung cancer <Unspecified side> Indication: follow up Comparison: PET/CT 04/28/2024. CT 12/27/2023. Technique: CT of the chest is performed without intravenous contrast. Findings: Lungs/Airways/Pleura: The lungs are emphysematous. Stable sequelae ofradiation therapy in the left lower lobe without evidence of localneoplasm recurrence. Small nonspecific lung nodules are stable andconsistent with benign etiology. No new suspicious lung nodules. Thecentral airways are patent. No pleural effusion. Neck/Mediastinum/Nodes/Heart: Stable left infrahilar lymph node measuring1.1 cm, image 57 of series 2. Subcentimeter mediastinal lymph nodes arestable. No new lymphadenopathy. Heart size is stable. No pericardial effusion. Mild coronary arterycalcifications. Stable dilated main pulmonary trunk measuring 3.2 cm. Upper abdomen: Bilateral nonobstructive renal calculi. Adrenals areunremarkable. Bones/Soft Tissues: No suspicious skeletal lesions. Stable compressiondeformity of T4 vertebral superior endplate. Partially imaged cervicalspinal fusion hardware. Stable small calcification in the right breast. 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 No recurrent ormetastatic disease. * Nonspecific left infrahilar lymph node is stable and likely benign. ACTIONABLE ITEMS/RECOMMENDATIONS*: None. *An Actionable Finding is a finding that may be unrelated to the originalreason for imaging but potentially actionable, meaning furtherinvestigation may be necessary. The Actionable Findings Vigilance Unit(AFVU) assists medical providers with responding to additional radiologicfindings that are unexpected and potentially actionable. Marjorie Lawson APRN [facility] [place] ORDERABLES Final Result * PETCT F18 FDG (Fluorodeoxyglucose) without contrast (04/18/2024 9:47 AM LOCAL SUPERINTENDENT) Anatomical Region Laterality Modality Whole Body Positron Emissio n Tomography (PET) 04/18/2024 10:2 8 AM LOCAL SUPERINTENDENT Impressions 04/18/2024 1:13 PM LOCAL SUPERINTENDENT Residua of a treated primary malignancy in [...] and potentially actionable. Narrative 04/18/2024 1:13 PM LOCAL SUPERINTENDENT FULL RESULT: Examination: 18F-FDG-PET/CT without contrast, 04/18/2024 [...] IMG PETCT ORDERABL ES Final Result * (ABNORMAL) POC Creatinine (12/27/2023 3:25 PM CDT) POC Creatinine 2.3(H) 0.6 - 1.3 mg/dL 12/27/2023 3:27 PM CDT [facility] Comment:Medications, especia lly hydroxyurea or supplements, such as ascorbate, can interfere with test results causing a falsely and significantly higher result than expected. If a problem is suspected with a patient's result, a sample should be sent to the laboratory for confirmatory testing. POC eGFR 22(L) >=60 mL/min/1.7 3 sq. m 12/27/2023 3:27 PM CDT [facility] Comment: The eGFRcr is calculated with the [...] PM CDT 12/27/2023 3:27 PM CDT Narrative [facility] - 12/27/2023 3:27 PM CDT Method description: [...] concentration by an electrochemical assay. Marjorie Lawson APRN POCT ORDERABLES - DEVICE Final Result [facility] Unless otherwise noted, all lab tests performed by: Division of Pathology and Laboratory Medicine [address] [place] [id number] after 10/27/2023 Insurance [employer] MEDICARE PPO A[employer] MEDICARE PPO Advance Directives * Full Code (Latest Code Status on File) Date Activated Date Inactivated Comments 07/28/2024 10:32 AM Update based on Advanced Directive Documentation Care Teams Development Associate Relationship Specialty Start Date End Date Christopher Hernandez MD [address] [place] [address] [id number] PCP - External Referring Pulmonary Medicine 01/20/23 Aakash Ortega MD [address] [place] [id number] [email or web address] Physician Cardiothoracic Surgery 01/29/23 Russ Joyner MD [address] [place] [phone] [email or web address] Consulting Physician Radiation Oncology 02/01/23 Aakash Osborne MD [address] [place] [address] [email or web address] [email or web address] Physician Pulmonary Medicine 02/09/23
--- NOTE | 2024-10-26 20:19 | RAD REPORT ---
EXAMINATION: ONE VIEW CHEST XR CLINICAL INDICATION: CHEST PAIN TECHNIQUE: Frontal chest projection is submitted. Examination is limited by patient positioning and t echnique. COMPARISON: 06/22/2024 FINDINGS: The lungs are well inflated and clear. The heart is mildly prominent in size. No displaced fractures identified. Aortic atherosclerosis. IMPRESSION: No acute intrathoracic abnormalities.
[2024-10-26] MEDS ORDERED: FENTANYL CITR 100 MCG/2 ML ONE (20:46)
[2024-10-26] MEDS ORDERED: ONDANSETRON 4 MG/2 ML VIAL ONE (20:48)
[2024-10-26 21:04] LABS: Absolute Lymphocytes (CBC) 2.0 K/uL (0.7-4.9); Hematocrit 30.7 % (36.0-45.0); Hemoglobin 10.4 g/dL (12.0-15.0); MCH 36.4 pg (27.0-35.0); MCHC 33.9 g/dL (32.0-36.0); MCV 107.6 fL (80-100); MPV 8.2 fL (7.6-11.3); Nucleated RBC Absolute Count 0.0 (0-0); Nucleated Red Blood Cells % 0.1 % (0-0); RBC Red Blood Cell Count 2.85 M/uL (3.86-4.86); White Blood Count 5.40 thou/uL (4.3-10.9)
[2024-10-26 21:11] LABS: PT Prothrombin Time 12.6 SECONDS (10-13.0); Protime INR 1.12
[2024-10-26 21:24] LABS: ALT/SGPT 27 U/L (13-56); AST/SGOT 24 U/L (15-37); Albumin 2.9 g/dL (3.4-5.0); Albumin/Globulin Ratio 0.6 (1.1-1.8); Alkaline Phosphatase 97 U/L (45-117); Anion Gap 8.2 mEq/L (5.0-15.0); BUN Blood Urea Nitrogen 30 mg/dL (7-18); Globulin 4.8 g/dL (2.3-3.5); Glucose Level 138 mg/dL (74-106); Lipase 51 U/L (13-75); Magnesium 2.4 mg/dL (1.6-2.4); Potassium 4.2 mEq/L (3.5-5.1); Troponin High Sensitivity 10.2 pg/mL (<58.9)
[2024-10-26 21:28] LABS: Urine Microscopic Reflex YN NO UMIC
[2024-10-26 21:36] LABS: Bilirubin Indirect, Calculated 0.0 mg/dL (0.2-0.8)
[2024-10-26 22:04] LABS: Anisocytosis 1+; Blood Morphology Comment NOTED (NOT SEEN); Macrocytosis 1+; Stomatocytes 1+; White Blood Cell Scan OK (OK)
--- NOTE | 2024-10-26 22:32 | RAD REPORT ---
EXAMINATION: CT ABDOMEN AND PELVIS WITHOUT CONTRAST CLINICAL INDICATION: right flank pain TECHNIQUE: CT abdomen and pelvis was performed, without IV contrast, as per department protocol. Axia l, sagittal and coronal reconstructions were obtained. One or more of the following dose reduction techniques were used: Automated exposure control, adjustment of the mA and kV according to the patien t size, and iterative reconstruction. Unless otherwise specified, incidental findings do not require dedicated imaging follow-up. COMPARISON: 03/07/2023 FINDINGS: The lack of intravenous contrast limits the sensitivity of this exam for evaluation of solid visceral organs, vascular structures, and retroperitoneum. LOWER CHEST: Mild linear left basilar lung opacities likely atelectasis. LIVER:Normal in size and contour. No focal lesion. Cholecystectomy clips. SPLEEN: Normal size. No focal lesion. PANCREAS: No mass, ductal dilation, or reymundo-pancreatic fluid. ADRENALS: Normal; no mass. KIDNEYS AND URETERS: Small bilateral renal calculi without hydronephrosis. URINARY BLADDER: Normal contour. GASTROINTESTINAL TRACT: No evidence of bowel obstruction, significant free fluid, free air or abscess . APPENDIX: Normal appendix. LYMPH NODES: No lymphadenopathy. MUSCULOSKELETAL: Moderate lower lumbar spondylosis. ADDITIONAL FINDINGS: Aortoiliac atherosclerosis. IMPRESSION: Bilateral calyceal calculi in both kidneys without hydronephrosis.
[2024-10-26] MEDS ORDERED: NA CHLORIDE 0.9% 1,000 ML ONE (23:31)
--- NOTE | 2024-10-27 00:41 | ER ---
Nurse's Notes [facility] Name: Meg Gonzalez Age: 73 yrs Sex: Female : 1950 Arrival Date: 10/26/2024 Time: 18:33 Bed 17 Private MD: Diagnosis: Dorsalgia, unspecified Presentation: 10/26 19:07 Chief complaint: Patient states: right flank pain and left shoulder pain that started me1 on Wednesday and has worsened. Pain level 9/10. Coronavirus screen: Vaccine status: Patient reports being unvaccinated. Ebola Screen: No symptoms or risks identified at this time. Initial Sepsis Screen: Does the patient meet any 2 criteria? No. Patient's initial sepsis screen is negative. Does the patient have a suspected source of infection? No. Patient's initial sepsis screen is negative. Risk Assessment: Do you want to hurt yourself or someone else? Patient reports no desire to harm self or others. Onset of symptoms was October 20, 2024. 19:07 Method Of Arrival: [place] [facility] 19:07 Acuity: GASPER 3 me1 Triage Assessment: 19:11 General: Appears uncomfortable, Behavior is calm, cooperative, appropriate for age. me1 Pain: Complains of pain in right flank Pain does not radiate. Pain currently is 9 out of 10 on a pain scale. Quality of pain is described as aching, Pain began last Wednesday Is continuous. EENT: No signs and/or symptoms were reported regarding the EENT system. Neuro: Level of Consciousness is awake, alert, obeys commands, Oriented to person, place, time, situation, Appropriate for age. Cardiovascular: Patient's skin is warm and dry. Respiratory: Airway is patent Respiratory effort is even, unlabored, Respiratory pattern is regular, symmetrical. GI: No signs and/or symptoms were reported involving the gastrointestinal system. : Reports pain in right flank(s), since last Wednesday. Derm: Skin is intact, is healthy with good turgor, Skin is normal. Musculoskeletal: Reports pain in right flank. Historical: - Allergies: 19:09 Ultram; me1 - PMHx: 19:09 HIGH PLATELETS; Hypertensive disorder; Lung Cancer; me1 - PSHx: 19:09 neck (Unknown); Total abdominal hysterectomy; Cholecystectomy; me1 - Immunization history:: Adult Immunizations up to date. - Infectious Disease History:: Denies. - Social history:: Smoking status: Patient reports the use of cigarette tobacco products, denies chronic smoking, but will smoke occasionally. Screenin:30 [facility] ED Fall Risk Assessment (Adult) History of falling in the last 3 months, kj2 including since admission No falls in past 3 months (0 pts) Confusion or Disorientation No (0 pts) Intoxicated or Sedated No (0 pts) Impaired Gait No (0 pts) Mobility Assist Device Used No (0 pt) Altered Elimination No (0 pt) Score/Fall Risk Level 0 - 2 = Low Risk Maintained a safe environment, Hourly rounding (assess needs \T\ fall precautionary measures) done. Abuse screen: Denies threats or abuse. Denies injuries from another. Nutritional screening: No deficits noted. Tuberculosis screening: No symptoms or risk factors identified. Assessment: 20:30 General: Appears in no apparent distress. uncomfortable, Behavior is calm, cooperative. kj2 Pain: Complains of pain in right flank and back Pain currently is 8 out of 10 on a pain scale. Neuro: Level of Consciousness is awake, alert, obeys commands, Oriented to person, place, time, situation. Cardiovascular: Patient's skin is warm and dry. Respiratory: Airway is patent Respiratory effort is even, unlabored. GI: No signs and/or symptoms were reported involving the gastrointestinal system. : No signs and/or symptoms were reported regarding the genitourinary system. 21:30 Reassessment: Patient appears in no apparent distress at this time. Patient and/or kj2 family updated on plan of care and expected duration. Pain level reassessed. Patient is alert, oriented x 3, equal unlabored respirations, skin warm/dry/pink. 22:30 Reassessment: Patient appears in no apparent distress at this time. Patient and/or kj2 family updated on plan of care and expected duration. Pain level reassessed. Patient is alert, oriented x 3, equal unlabored respirations, skin warm/dry/pink. 23:25 Reassessment: Patient appears in no apparent distress at this time. Patient and/or kj2 family updated on plan of care and expected duration. Pain level reassessed. Patient is alert, oriented x 3, equal unlabored respirations, skin warm/dry/pink. 23:37 Reassessment: RN reported blood pressures to provider. kj2 Vital Signs: 19:07 BP 113 / 69; Pulse 57; Resp 16; Temp 98; Pulse Ox 100% ; Weight 75.75 kg; Height 5 ft. me1 8 in. ; Pain 9/10; 21:30 BP 100 / 63; Pulse 58; Resp 18; Pulse Ox 100% on R/A; kj2 22:30 BP 102 / 64; Pulse 58; Resp 18; Pulse Ox 98% on R/A; kj2 23:33 BP 93 / 49; Pulse 59; Resp 18; Pulse Ox 100% on R/A; kj2 19:07 Body Mass Index 25.39 (75.75 kg, 172.72 cm) me1 19:07 Pain Scale: Adult fl1 ED Course: 18:36 Patient arrived in ED. cj3 18:41 Neo Monson PA is PHCP. cp 18:41 Gorge Dimas DO is Attending Physician. cp 19:09 Triage completed. me1 19:09 Arm band placed on Patient placed in waiting room. me1 19:40 XRAY Chest (1 view) In Process Unspecified. EDMS 19:58 Jeremy Turner MD is Attending Physician. cp 20:08 Angella Toussaint RN is Primary Nurse. kj2 20:30 Patient has correct armband on for positive identification. Bed in low position. Call kj2 light in reach. Provided Education on: call light. 21:01 Inserted saline lock: 22 gauge in right wrist, using aseptic technique. Blood oe collected. Flushed with 10 mL NS. 21:02 Basic Metabolic Panel Sent. oe 21:02 CBC with Diff Sent. oe 21:02 LFT's Sent. oe 21:02 Magnesium Sent. oe 21:02 PT-INR Sent. oe 21:02 Troponin HS Sent. oe 21:17 Lipase Sent. oe 22:20 Abdomen In Process Unspecified. EDMS 10/27 00:09 Report given to GREGOR Bledsoe. kj2 00:56 No provider procedures requiring assistance completed. IV discontinued, intact, br2 bleeding controlled, No redness/swelling at site. Pressure dressing applied. Administered Medications: 10/26 21:00 Drug: fentaNYL (PF) IVP 25 mcg IVP once Route: IVP; Site: right forearm; kj2 23:36 Follow up: Response: No adverse reaction kj2 21:00 Drug: Ondansetron IVP 4 mg IVP once; over 2 minutes Route: IVP; Site: right forearm; kj2 23:36 Follow up: Response: No adverse reaction kj2 23:43 Drug: NS 0.9% IV 1000 ml IV at 1000 ml once; to be given as a bolus over 60 minutes kj2 Route: IV; Rate: 1000 ml; Site: right forearm; 10/27 00:43 Follow up: Response: No adverse reaction; IV Status: Completed infusion; IV Intake: br2 1000ml 00:56 Drug: Methocarbamol PO 500 mg PO once Route: PO; br2 00:58 Follow up: Response: Medication administered at discharge. br2 Medication: 10/26 22:10 VIS not applicable for this client. kj2 Intake: 10/27 00:43 IV: 1000ml; Total: 1000ml. br2 Outcome: 00:40 Discharge ordered by MD. cp 00:56 Discharged to home via wheelchair, br2 00:56 Condition: stable 00:56 Discharge instructions given to patient, Instructed on discharge instructions, follow up and referral plans. Demonstrated understanding of instructions, follow-up care, medications, Prescriptions given X 1, 00:58 Patient left the ED. br2 Signatures: Dispatcher [employer] EDMS Neo Monson PA PA cp Espin[place], [place] oe Eddleman, Michelle, RN RN me1 Loulou Rivera RN RN br2 Angella Toussaint RN RN kj2 Sully Skinner cj3
--- NOTE | 2024-10-27 00:41 | EDPHYS ---
Physician Documentation [facility] Name: Meg Gonzalez Age: 73 yrs Sex: Female : 1950 Arrival Date: 10/26/2024 Time: 18:33 Bed 17 Private MD: ED Physician Jeremy Turner HPI: 10/26 19:20 This 73 yrs old Black Female presents to ER via Ambulatory with complaints of Flank cp Pain - RT. 19:20 The patient complains of pain in the right flank. The pain radiates to the right side cp abdomen. Onset: The symptoms/episode began/occurred last Wednesday. Associated signs and symptoms: Pertinent positives: left shoulder pain. 19:20 Severity of pain: in the emergency department the pain is unchanged despite home cp interventions. 19:20 Modifying factors: the symptoms are aggravated by movement, palpation/percussion. cp Historical: - Allergies: 19:09 Ultram; me1 - PMHx: 19:09 HIGH PLATELETS; Hypertensive disorder; Lung Cancer; me1 - PSHx: 19:09 neck (Unknown); Total abdominal hysterectomy; Cholecystectomy; me1 - Immunization history:: Adult Immunizations up to date. - Infectious Disease History:: Denies. - Social history:: Smoking status: Patient reports the use of cigarette tobacco products, denies chronic smoking, but will smoke occasionally. ROS: 19:25 Constitutional: Negative for body aches, chills, fever, poor PO intake, cp 19:25 Cardiovascular: Negative for chest pain, edema, palpitations, 19:25 Respiratory: Negative for cough, shortness of breath, wheezing, 19:25 Back: Positive for flank pain, on the right, 19:25 : Negative for urinary symptoms, cp 19:25 Skin: Negative for rash, 19:25 Eyes: Negative for injury, pain, redness, and discharge, cp 19:25 ENT: Negative for drainage from ear(s), ear pain, sore throat, difficulty swallowing, cp difficulty handling secretions, 19:25 All other systems are negative, Exam: 19:30 Constitutional: The patient appears in no acute distress, alert, awake, cp non-diaphoretic, non-toxic, well developed, well nourished, uncomfortable, 19:30 Head/Face: Normocephalic, atraumatic. cp 19:30 Eyes: Periorbital structures: appear normal, Conjunctiva: normal, no exudate, no injection, Sclera: no appreciated abnormality, Lids and lashes: appear normal, bilaterally, 19:30 ENT: External ear(s): are unremarkable, Nose: is normal, Mouth: Lips: moist, Oral mucosa: moist, Posterior pharynx: Airway: no evidence of obstruction, patent, 19:30 Chest/axilla: Inspection: normal, 19:30 Cardiovascular: Rate: normal, Rhythm: regular, 19:30 Respiratory: the patient does not display signs of respiratory distress, Respirations: normal, no use of accessory muscles, no retractions, labored breathing, is not present, Breath sounds: are clear throughout, no decreased breath sounds, 19:30 Abdomen/GI: Inspection: abdomen appears normal, Bowel sounds: active, all quadrants, Palpation: soft, in all quadrants, moderate abdominal tenderness, in the posterior aspect of right lateral abdomen and anterior aspect of right lateral abdomen, rebound tenderness, is not appreciated, involuntary guarding, is not appreciated, 19:30 Skin: cellulitis, is not appreciated, no rash present. 21:15 ECG was reviewed by the Attending Physician. cp Vital Signs: 19:07 BP 113 / 69; Pulse 57; Resp 16; Temp 98; Pulse Ox 100% ; Weight 75.75 kg; Height 5 ft. me1 8 in. ; Pain 9/10; 21:30 BP 100 / 63; Pulse 58; Resp 18; Pulse Ox 100% on R/A; kj2 22:30 BP 102 / 64; Pulse 58; Resp 18; Pulse Ox 98% on R/A; kj2 23:33 BP 93 / 49; Pulse 59; Resp 18; Pulse Ox 100% on R/A; kj2 19:07 Body Mass Index 25.39 (75.75 kg, 172.72 cm) me1 19:07 Pain Scale: Adult me1 MDM: 19:08 Medical Screening Exam initiated cp 21:00 Differential diagnosis: nephrolithiasis, pyelonephritis, UTI, diverticulitis, colitis, cp herpes zoster. 10/27 00:40 Data reviewed: vital signs, nurses notes, lab test result(s), radiologic studies, CT cp scan, plain films, and as a result, I will discharge patient. 00:40 Special discussion: Based on the patient's Hx, exam, and Dx evaluation, there is no cp indication for emergent surgery or inpatient Tx. It is understood by the patient/guardian that if the Sx's persist or worsen they need to return immediately for re-evaluation. 10/26 19:14 Order name: Basic Metabolic Panel; Complete Time: 22:12 cp 10/27 00:28 Interpretation: Normal except: CL 111; GLUC 138; BUN 30; CRE 1.95; GFR 27. 10/26 19:14 Order name: CBC with Diff; Complete Time: 22:12 10/26 21:32 Interpretation: Normal except: RBC 2.85; HGB 10.4; HCT 30.7; MCV 107.6; MCH 36.4. 10/26 19:14 Order name: LFT's; Complete Time: 22:12 10/27 00:28 Interpretation: Normal except: IBILI, CALC 0.0; ALB 2.9; GLOB 4.8; A/G 0.6. 10/26 19:14 Order name: Magnesium; Complete Time: 22:12 10/26 19:14 Order name: PT-INR; Complete Time: 21:32 10/26 19:14 Order name: Troponin HS; Complete Time: 22:12 10/27 00:28 Interpretation: Reviewed. 10/26 19:14 Order name: UA Rfx Haresh Cult if indicated; Complete Time: 21:32 cp 10/27 00:30 Interpretation: Reviewed. 10/26 19:14 Order name: Lipase; Complete Time: 22:12 10/26 21:08 Order name: CBC Smear Scan; Complete Time: 22:12 EDMS 10/26 19:14 Order name: XRAY Chest (1 view); Complete Time: 21:32 cp 10/27 00:29 Interpretation: Report review. 10/26 22:13 Order name: Abdomen ; Complete Time: 23:37 EDMS 10/27 00:29 Interpretation: Report reviewed. 10/26 19:14 Order name: Cardiac monitoring; Complete Time: 21:39 cp 10/26 19:14 Order name: EKG - Nurse/Tech; Complete Time: 21:17 cp 10/26 19:14 Order name: IV Saline Lock; Complete Time: 21:01 10/26 19:14 Order name: Labs collected and sent; Complete Time: 21:01 10/26 19:14 Order name: O2 Per Protocol; Complete Time: 21:39 cp 10/26 19:14 Order name: O2 Sat Monitoring; Complete Time: 21:40 cp EC/14 21:15 Rate is 60 beats/min. Rhythm is regular. CO interval is normal. QRS interval is normal. cp QT interval is prolonged at 502 msec. T waves are Inverted in leads III, aVF, V4, V5, V6. Interpreted by me. Reviewed by me. Administered Medications: 21:00 Drug: fentaNYL (PF) IVP 25 mcg IVP once Route: IVP; Site: right forearm; kj2 23:36 Follow up: Response: No adverse reaction kj2 21:00 Drug: Ondansetron IVP 4 mg IVP once; over 2 minutes Route: IVP; Site: right forearm; kj2 23:36 Follow up: Response: No adverse reaction kj2 23:43 Drug: NS 0.9% IV 1000 ml IV at 1000 ml once; to be given as a bolus over 60 minutes kj2 Route: IV; Rate: 1000 ml; Site: right forearm; 10/27 00:43 Follow up: Response: No adverse reaction; IV Status: Completed infusion; IV Intake: br2 1000ml 00:56 Drug: Methocarbamol PO 500 mg PO once Route: PO; br2 00:58 Follow up: Response: Medication administered at discharge. br2 Disposition: 03:04 Co-signature as Attending Physician, Jeremy Turner MD I reviewed the patient's care rn provided by the Advanced Practice Provider and agree with the diagnosis and treatment plan. Disposition Summary: 10/27/24 00:40 Discharge Ordered Notes: Location: Home cp Problem: new cp Symptoms: have improved cp Condition: Stable cp Diagnosis - Dorsalgia, unspecified cp Followup: cp - With: Private Physician - When: 2 - 3 days - Reason: Worsening of condition Discharge Instructions: - Discharge Summary Sheet cp - Acute Back Pain, Adult cp - Musculoskeletal Pain cp - Back Exercises cp Forms: - Medication Reconciliation Form cp - Antibiotic Education cp - Prescription Opioid Use cp - Patient Portal Instructions cp - Leadership Thank You Letter cp Prescriptions: - methocarbamol 500 mg Oral tablet - take 1 tablet ORAL route 3 times per day As needed for back pain; 30 tablet; cp Refills: 0, Product Selection Permitted Signatures: Dispatcher [employer] EDMS Jeremy Turner MD MD rn Neo Monson PA PA cp Di Nuno, RN RN me1 Loulou Rivera, RN RN br2 Angella Toussaint, GREGOR RN kj2 Corrections: (The following items were deleted from the chart) 10/26 19:15 19:14 BASIC METABOLIC PANEL+C.LAB.BRZ ordered. EDMS EDMS 19:15 19:14 CBC+H.LAB.BRZ ordered. EDMS EDMS 19:15 19:14 HEPATIC FUNCTION+C.LAB.BRZ ordered. EDMS EDMS 19:15 19:14 MAGNESIUM+C.LAB.BRZ ordered. EDMS EDMS 19:15 19:14 PROTIME (+INR)+COAG.LAB.BRZ ordered. EDMS EDMS 19:15 19:14 Troponin High Sensitivity+C.LAB.BRZ ordered. EDMS EDMS 19:15 19:14 UA Rfx Haresh Cult if indicated+U.LAB.BRZ ordered. EDMS EDMS 19:15 19:14 LIPASE+C.LAB.BRZ ordered. EDMS EDMS 19:15 19:15 Chest Single View+RAD.RAD.BRZ ordered. EDMS EDMS 21:19 21:19 Abdomen Pelvis W/Wo Con+CT.RAD.BRZ ordered. EDMS EDMS 10/27 02:53 02:52 Back: Positive for flank pain, on the right, cp cp 02:53 02:52 Constitutional: Negative for body aches, chills, fever, poor PO intake, cp cp 02:53 02:52 Cardiovascular: Negative for chest pain, edema, palpitations, cp cp 02:53 02:52 Respiratory: Negative for cough, shortness of breath, wheezing, cp cp
[2024-10-27 04:50] VITALS: TEMP 98
[2024-10-27 04:54] VITALS: BP 93/49; O2SAT 100
== END 2024-10-27 00:58 | disposition home or self-care (01) ==
LOC: ER 18:33
DX: M54.9 Dorsalgia, unspecified (principal); R10.9 Unspecified abdominal pain; M25.512 Pain in left shoulder; F17.210 Nicotine dependence, cigarettes, uncomplicated
CPT/HCPCS: 96361; 93005; 85025; 80048; 36415; 83735; 85610; 80076; 81003; 84484; 83690; 74176; 71045; 96375; 96374; 99284; J3010; J2405; J7030